=== PATIENT | male | born 1935 | race Caucasian/White ===

== ENCOUNTER → 2016-07-17 | Day surgery (SDC) | payer MEDICARE ==
[2016-07-17 10:09] LABS: HCT 33.5 % (42.0-52.0); HGB 10.7 g/dl (13.2-18.0); MCH 28.4 pg (25.0-31.0); MCHC 31.9 g/dL (32.0-36.0); MCV 88.9 fL (78.0-100.0); MPV 11.2 fL (6.0-9.5); RBC 3.77 M/uL (4.70-6.00); RDW 15.9 % (11.5-14.0); WBC 9.3 K/uL (4.0-10.5)
[2016-07-17 10:26] LABS: ALBUMIN 4.1 g/dL (3.4-4.8); BILIRUBIN - TOTAL 0.6 mg/dL (0.1-1.0); CREATININE 0.8 mg/dL (0.7-1.2); GLOBULIN (CALCULATION) 3.3 g/dL (2.2-4.2); TOTAL PROTEIN 7.4 g/dL (6.4-8.3)
== END | disposition home or self-care (01) ==
LOC: FAS 09:02
PROVIDERS: Surgery
DX: Z12.11 Encounter for screening for malignant neoplasm of colon (principal); E03.9 Hypothyroidism, unspecified; E78.5 Hyperlipidemia, unspecified; E11.9 Type 2 diabetes mellitus without complications; I11.0 Hypertensive heart disease with heart failure; I50.9 Heart failure, unspecified; G47.30 Sleep apnea, unspecified; M19.90 Unspecified osteoarthritis, unspecified site; Z90.3 Acquired absence of stomach [part of]; Z95.0 Presence of cardiac pacemaker; Z85.01 Personal history of malignant neoplasm of esophagus; Z87.891 Personal history of nicotine dependence; Z86.010 Personal history of colon polyps; Z82.5 Family history of asthma and other chronic lower respiratory diseases; Z82.49 Family history of ischemic heart disease and other diseases of the circulatory system; Z79.82 Long term (current) use of aspirin; Z79.899 Other long term (current) drug therapy; Z98.890 Other specified postprocedural states
CPT/HCPCS: 43239; G0105; 36415; 80053; 88305; J2704